=== PATIENT | female | born 1935 | race Caucasian/White ===

== ENCOUNTER → 2020-04-05 | Outpatient (CLI) | payer MEDICARE, OTHER | END | disposition home or self-care (01) | LOC: LAB SHORT 17:45 → LAB 17:45 | DX: Z00.00 Encounter for general adult medical examination without abnormal findings (principal); E03.9 Hypothyroidism, unspecified; E78.5 Hyperlipidemia, unspecified; M54.5 Low back pain; R31.21 Asymptomatic microscopic hematuria | CPT/HCPCS: 87086 ==

== ENCOUNTER → 2022-01-07 | Outpatient (CLI) | payer MEDICARE, OTHER ==
[2022-01-07 08:54] LABS: BASOPHILS ABSOLUTE AUTO 0.03 K/mm3 (0.00-0.23); BASOPHILS PERCENT AUTO 0 % (0-2); EOSINOPHILS ABSOLUTE AUTO 0.05 K/mm3 (0.00-0.68); EOSINOPHILS PERCENT AUTO 1 % (0-6); Hematocrit 43.1 % (33.0-51.0); Hemoglobin 15.4 g/dL (11.5-16.0); IMMATURE GRAN ABSOLUTE AUTO 0.02 K/mm3 (0.00-0.10); IMMATURE GRAN PERCENT AUTO 0 % (0-1); LYMPHOCYTES ABSOLUTE AUTO 1.72 K/mm3 (0.84-5.20); LYMPHOCYTES PERCENT AUTO 23 % (21-46); MONOCYTES ABSOLUTE AUTO 1.88 K/mm3 (0.16-1.47); MONOCYTES PERCENT AUTO 26 % (4-13); Mean Corpuscular HGB 34.1 pg (26.0-34.0); Mean Corpuscular HGB Conc 35.7 g/dL (31.5-36.5); Mean Corpuscular Volume 96 fL (80-100); Mean Platelet Volume 9.6 fL (9.1-12.4); NEUTROPHILS ABSOLUTE AUTO 3.68 K/mm3 (1.96-9.15); NEUTROPHILS PERCENT AUTO 50 % (41-73); Platelet Count 219 K/mm3 (150-400); RDW Coefficient Variation 12.2 % (11.7-14.2); Red Blood Cell Count 4.51 M/mm3 (3.80-5.20); White Blood Cell Count 7.38 K/mm3 (4.00-11.30)
[2022-01-07 09:05] LABS: Albumin/Globulin Ratio 0.7 (0.8-1.8); Bilirubin, Total 0.7 mg/dL (0.1-1.0); Bun/Creatinine Ratio 9.9 (12.0-20.0); Creatinine, Blood 1.01 mg/dL (0.40-1.00); Globulin, Blood 4.1 g/dL (2.2-4.0); Potassium, Blood 3.1 mmol/L (3.5-5.5); Total Protein, Blood 7.1 g/dL (6.4-8.2)
== END | disposition home or self-care (01) ==
LOC: LAB SHORT 08:49 → LAB 08:49
PROVIDERS: Family Medicine
DX: R10.9 Unspecified abdominal pain (principal); R31.9 Hematuria, unspecified
CPT/HCPCS: 80053; 83690; 85025; 87086

== ENCOUNTER 2022-01-28 11:53 | Inpatient (IN) | payer MEDICARE, OTHER ==
[~2022-01-28] VITALS: Ht 170.2 cm; Wt 64.7 kg
--- NOTE | 2022-01-28 14:42 | NUR ---
ADMISSION- DIRECT ADMIT 1211 01/28/22 PATIENT REPORTS HAVING AN [facility] APPT THIS AM, DUE TO HER LACK OF BM, AND WAS SENT BY DR. HARMON FOR DIRECT ADMIT. SHE REPORTS A SMALL BM ON 01/24/22, BUT BEFORE THAT IT HAD BEEN SINCE 12/26/21 HER LAST BM. THIS AM (AT HOME) SHE VOMITTED WHAT IS SUSPECTED TO BE BOWEL CONTENT. SHE WILL HAVE A CT, AND POSSIBLY SURGERY DEPENDING ON RESULTS. PATIENTS PAIN IS INTERMITTENT IN THE ABDOMEN, BEGINS A DULL PAIN AND MOVES TOWARDS SHARP. ABD IS DISTENDED AND TENDER ON PALPATION. SHE IS ALERT AND OREINTATED. WALKS WITHOUT CANE/WALKER AND DOES WELL. SHE WEARS GLASSES, AND HAS A PARTIAL IN UPPER TOOTH LINE. SHE IS NPO.
--- NOTE | 2022-01-28 18:37 | NUR ---
PATIENT WAS A DIRECT ADMIT THIS AFTERNOON. PLEASE ALSO READ NURSING NOTE. SINCE THE TIME OF ADMISSION, THE PATIENT HAS BEEN NPO. SHE HAS LR RUNNING @ 100 IN THE RIGHT AC- (20G) SHE IS SLOWLY DRINING THE PREP FOR THE CT SCAN. THE PREP NEEDS TO BE COMPLETED BY 8:00P/2000, SO THAT IMAGING CAN DO THIER CT. PATIENT HAD A SPELL OF NAUSEA AND WAS GIVEN ZOFRAN IV WITH SOME EFFECTIVNESS. STATES THAT SHE STILL FEELS A BIT NAUSEATED BUT DID NOT VOMIT. SHE WAS GIVEN A DULCOLAX SUPPOSITORY THIS EVENING. NO RESULTS AND NO URGE. LAB TEST CAME BACK WITH A HIGH RESULT THAT MAY INDICATE CANCER. PATIENT IS NOT AWARE OF THIS AT THIS TIME.
--- NOTE | 2022-01-28 22:56 | NUR ---
TOLERATED PREP BEFORE CT, WAS ESCORTED TO AND FROM RADIOLOGY. BACK IN ROOM. AFFECT CHEERFUL. CALL LIGHT IN REACH
[2022-01-29] MEDS ORDERED: ROSUVASTATIN CA20 MG PO (00:52)
[2022-01-29] MEDS ORDERED: Mobic15 MG PO (00:52)
[2022-01-29] MEDS ORDERED: EUTHYROX88 MC1 PO (00:52)
[2022-01-29] MEDS ORDERED: Cyclobenzaprine5 MG PO (00:53)
[2022-01-29] MEDS ORDERED: KLOR-CON 1010 ME8 PO (00:53)
--- NOTE | 2022-01-29 04:18 | NUR ---
ADMINISTRATIVE CLERK SUMMARY FINISHED PREP FOR CT AROUND SHIFT [place], WAS TRANSPORTED TO AND FROM RADIOLOGY FOR ABD CT. AWAITING RESULTS. HAS BEEN RESTING QUIETLY WITH OCCASIONAL INTERRUPTIONS (NAUSEA/ZOFRAN, ETC). UP AD TANISHA WITHOUT APPARENT DIFFICULTIES. NPO, IVF OF LR INFUSING AT 100 ML/HR. SEE MAR FOR DETAILS OF MEDS GIVEN. CALL LIGHT IN REACH
[2022-01-29 05:57] LABS: BASOPHILS ABSOLUTE AUTO 0.04 K/mm3 (0.00-0.23); BASOPHILS PERCENT AUTO 1 % (0-2); EOSINOPHILS ABSOLUTE AUTO 0.08 K/mm3 (0.00-0.68); EOSINOPHILS PERCENT AUTO 1 % (0-6); Hematocrit 39.8 % (33.0-51.0); Hemoglobin 13.9 g/dL (11.5-16.0); IMMATURE GRAN ABSOLUTE AUTO 0.02 K/mm3 (0.00-0.10); IMMATURE GRAN PERCENT AUTO 0 % (0-1); LYMPHOCYTES ABSOLUTE AUTO 1.88 K/mm3 (0.84-5.20); LYMPHOCYTES PERCENT AUTO 24 % (21-46); MONOCYTES PERCENT AUTO 14 % (4-13); Mean Corpuscular HGB 33.7 pg (26.0-34.0); Mean Corpuscular HGB Conc 34.9 g/dL (31.5-36.5); Mean Corpuscular Volume 96 fL (80-100); Mean Platelet Volume 10.4 fL (9.1-12.4); NEUTROPHILS ABSOLUTE AUTO 4.63 K/mm3 (1.96-9.15); NEUTROPHILS PERCENT AUTO 60 % (41-73); Platelet Count 196 K/mm3 (150-400); RDW Coefficient Variation 12.8 % (11.7-14.2); RDW Standard Deviation 45.6 fL (35.1-46.3); Red Blood Cell Count 4.13 M/mm3 (3.80-5.20); White Blood Cell Count 7.75 K/mm3 (4.00-11.30)
[2022-01-29 06:27] LABS: Albumin, Blood 3.1 g/dL (3.4-5.0); Bilirubin, Total 0.9 mg/dL (0.1-1.0); Bun/Creatinine Ratio 11.2 (12.0-20.0); Calcium, Blood 9.2 mg/dL (8.5-10.1); Creatinine, Blood 0.81 mg/dL (0.40-1.00); Globulin, Blood 3.2 g/dL (2.2-4.0); Magnesium, Blood 2.2 mg/dL (1.6-2.4); Phosphorus, Blood 3.7 mg/dL (2.5-4.9); Potassium, Blood 3.5 mmol/L (3.5-5.5); Total Protein, Blood 6.3 g/dL (6.4-8.2)
--- NOTE | 2022-01-29 07:50 | NUR ---
AT BEGINNING OF SHIFT PATIENT HAS SEVERE NAUSEA. ZOFRAN IV GIVEN. PATIENT HOLDING EMESIS BAG, SPITTING INTO IT, TRYING NOT TO FULLY VOMIT. COOL CLOTH APPLIED TO FORHEAD.
--- NOTE | 2022-01-29 16:07 | NUR ---
CONSULT WITH DR APONTE (SURGERY) COMPLETED. PATIENTS CONDITION WILL BE OBSERVED FOR A WHILE WITH NG IN PLACE BEFORE DECIDING IF SURGERY IS NEEDED. THE HOPE IS FOR THE SMALL INTESTINE TO UNTANGLE ITSELF A BIT. LOVENOX HAS BEEN DC FOR NOW, IN THE EVENT THAT SURGERY WOULD BE NEEDED. SCD'S APPLIED BILATERALLY. PATIENT HAS NEEDED ZOFRAN 2 X THIS SHIFT, ONCE BEFORE NG TUBE, AND ONCE LATER IN THE DAY. IT IS EFFECTIVE IN RELEIVING SOME OF THE NAUSEA.
--- NOTE | 2022-01-29 17:55 | NUR ---
PATIENT USED ZOFRAN X 2 TODAY. NG TUBE PLACED. SURGICAL CONSULT COMPLETED. LOVUNOX DISCONTINUED, SCD APPLIED. 300 OUT NG. EMISIS WITH FECAL CONTENT 300 CC BECAUSE NG BECAME PLUGGED. CLOG CLEARED AND NG IS WORKING AGAIN. PROTONIX IV STARTING TONIGHT AT 1700 PATIENT IS VISITING WITH SON AT THIS TIME AND FEELING A LITTLE LESS NAUSEATED.
--- NOTE | 2022-01-30 03:57 | NUR ---
SHIFT SUMMARY PT SLEEPING AND HAS NO COMPLAINTS AT THIS TIME. PT NG TUBE ON INTERMITTENT SUCTION. NG TUBE DOES CLOG WITH SEDIMENT AT TIMES, BUT ABLE TO CLEAR WITH WARM WATER FLUSHES. REPLACED PT IV AFTER OTHER ONE BEGAN TO LEAK. PT CONTINUES TO GET LR AT 100/HR. PT ANXIOUS ABOUT NG TUBE AND WHETHER OR NOT IT IS WORKING PROPERLY, HAVE TRIED TO REASSURE HER THAT IT IS DOING IT'S JOB. PT HAS CALL LIGHT WITHIN HER REACH.
[2022-01-30 05:47] LABS: BASOPHILS ABSOLUTE AUTO 0.03 K/mm3 (0.00-0.23); BASOPHILS PERCENT AUTO 0 % (0-2); EOSINOPHILS ABSOLUTE AUTO 0.14 K/mm3 (0.00-0.68); EOSINOPHILS PERCENT AUTO 2 % (0-6); Hematocrit 36.8 % (33.0-51.0); Hemoglobin 12.6 g/dL (11.5-16.0); IMMATURE GRAN ABSOLUTE AUTO 0.01 K/mm3 (0.00-0.10); IMMATURE GRAN PERCENT AUTO 0 % (0-1); LYMPHOCYTES PERCENT AUTO 33 % (21-46); MONOCYTES ABSOLUTE AUTO 0.91 K/mm3 (0.16-1.47); MONOCYTES PERCENT AUTO 13 % (4-13); Mean Corpuscular HGB 33.5 pg (26.0-34.0); Mean Corpuscular HGB Conc 34.2 g/dL (31.5-36.5); Mean Corpuscular Volume 98 fL (80-100); Mean Platelet Volume 10.2 fL (9.1-12.4); NEUTROPHILS ABSOLUTE AUTO 3.54 K/mm3 (1.96-9.15); NEUTROPHILS PERCENT AUTO 51 % (41-73); Platelet Count 178 K/mm3 (150-400); RDW Coefficient Variation 12.6 % (11.7-14.2); RDW Standard Deviation 45.3 fL (35.1-46.3); Red Blood Cell Count 3.76 M/mm3 (3.80-5.20); White Blood Cell Count 6.93 K/mm3 (4.00-11.30)
[2022-01-30 05:57] LABS: International Normalized Ratio 1.04; Prothrombin Time Results 10.9 Sec (9.7-11.5)
[2022-01-30 06:02] LABS: Albumin, Blood 2.7 g/dL (3.4-5.0); Bilirubin, Total 0.8 mg/dL (0.1-1.0); Bun/Creatinine Ratio 17.6 (12.0-20.0); Calcium, Blood 8.3 mg/dL (8.5-10.1); Creatinine, Blood 0.74 mg/dL (0.40-1.00); Globulin, Blood 2.8 g/dL (2.2-4.0); Potassium, Blood 3.4 mmol/L (3.5-5.5); Total Protein, Blood 5.5 g/dL (6.4-8.2)
--- NOTE | 2022-01-30 19:23 | NUR ---
SHIFT SUMMARY PT A/O X4; PLEASANT AND COOPERATIVE WITH CARE. ADMITTED FOR SBO THAT IS NON-SURGICAL AT THIS TIME. NG TUBE IN PLACE AND PATENT. NG DRAINING LARGE AMOUNTS OF BILE. PT PLACED ON TPN THIS SHIFT. NO NAUSEA OR PAIN, HOWEVER THE PATIENT HAS A SORE THROAT AND TREATED PER EMR.
--- NOTE | 2022-01-31 05:44 | NUR ---
SHIFT SUMMARY PATIENT ALERT AND ORIENTED. HAD NO COMPLAINTS OF PAIN OR SHORTNESS OF BREATH. NG TUBE REMAINS IN PLACE AND ON LOW/INTERMITTENT SUCTION DRAINING BROWN LIQUID. NO ACUTE ISSUES NOTED OVERNIGHT. CALL LIGHT WITHIN REACH. REPORT GIVEN TO ONCOMING RN.
[2022-01-31 06:21] LABS: Bun/Creatinine Ratio 20.4 (12.0-20.0); Calcium, Blood 8.5 mg/dL (8.5-10.1); Creatinine, Blood 0.64 mg/dL (0.40-1.00); Magnesium, Blood 2.2 mg/dL (1.6-2.4); Phosphorus, Blood 2.6 mg/dL (2.5-4.9); Potassium, Blood 3.7 mmol/L (3.5-5.5)
--- NOTE | 2022-01-31 07:30 | NUR ---
ASSUMED CARE: PT RESTING IN BED AT THIS TIME. NG TO LIS PUTTING OUT GREEN DRAINAGE. NIGHT RN REPORTS PT PASSING GAS. PT DENIES NEEDS OR CONCERNS AT THIS TIME.
--- NOTE | 2022-01-31 09:07 | NUR ---
DR APONTE CAME TO SEE PT AND REQUESTED THAT NG BE CLAMPED AND PT DO SIPS AND CHIPS AND TRIAL CLEAR LIQUIDS AND IF PT TOLERATES WELL THEN DC NG
--- NOTE | 2022-01-31 11:00 | NUR ---
PT AMBULATED IN HALLS WITH WALKER WHILE NG TUBE CLAMPED. RESTING IN BED NOW. ASKED PT IF SHE WOULD LIKE TO TRY CLEAR LIQUIDS. PT SIPPING ON CRANBERRY JUICE AT THIS TIME. DENIES NAUSEA OR VOMITING.
--- NOTE | 2022-01-31 15:08 | NUR ---
REMOVED PT'S NG TUBE DUE TO TOLERATING CLEAR LIQUIDS WELL. NO NEEDS OR DISTRESS AT THIS TIME. SOLAR SALES REP AT BEDSIDE
--- NOTE | 2022-01-31 18:42 | NUR ---
SHIFT SUMMARY: PT AMBULATORY IN HALLS THIS SHIFT, PASSING GAS. NG TUBE REMOVED AND DENIES NAUSEA WITH MEALS. FLUIDS SWITCHED TO LR PER ORDERS. POSSIBLE DC HOME TOMORROW. NO ACUTE NEEDS OR CONCERNS AT THIS TIME.
[2022-02-01 05:25] LABS: Magnesium, Blood 2.1 mg/dL (1.6-2.4); Phosphorus, Blood 2.7 mg/dL (2.5-4.9)
--- NOTE | 2022-02-01 06:18 | NUR ---
SHIFT SUMMARY PATIENT ALERT AND ORIENTED. HAD NO COMPLAINTS OF PAIN OR SHORTNESS OF BREATH. HAD A SMALL BOWEL MOVEMENT THIS MORNING. NO ACUTE ISSUES NOTED OVERNIGHT. CALL LIGHT WITHIN REACH. REPORT GIVEN TO ONCOMING RN.
[2022-02-01] MEDS ORDERED: MIRALAX1713 PO (13:32)
--- NOTE | 2022-02-01 14:29 | NUR ---
DISCHARGE PT A&OX4, PROVIDED WRITTEN AND VERBAL INFO. IV DC'ED, AMB.IND. TOLERATING PO INTAKE. BOWEL TONES PRESENT. [facility], SON PROVIDING TRANSPORT.
== END 2022-02-01 14:26 | disposition home or self-care (01) | DRG 390 ==
LOC: MEDS 11:53
PROVIDERS: ADMIT Hospitalist
DX: K56.51 Intestinal adhesions [bands], with partial obstruction (principal); K59.09 Other constipation; F41.9 Anxiety disorder, unspecified; F32.A Depression, unspecified; M19.90 Unspecified osteoarthritis, unspecified site; E78.5 Hyperlipidemia, unspecified; M85.80 Other specified disorders of bone density and structure, unspecified site; E03.9 Hypothyroidism, unspecified; I70.90 Unspecified atherosclerosis; F17.210 Nicotine dependence, cigarettes, uncomplicated; J43.9 Emphysema, unspecified; E87.6 Hypokalemia; Z86.73 Personal history of transient ischemic attack (TIA), and cerebral infarction without residual deficits; Z90.710 Acquired absence of both cervix and uterus; Z90.722 Acquired absence of ovaries, bilateral; Z90.49 Acquired absence of other specified parts of digestive tract; Z98.890 Other specified postprocedural states; Z88.8 Allergy status to other drugs, medicaments and biological substances; Z79.899 Other long term (current) drug therapy; Z79.51 Long term (current) use of inhaled steroids; Z88.5 Allergy status to narcotic agent; Z71.3 Dietary counseling and surveillance
CPT/HCPCS: 36415; 74019; 74177; 80048; 80053; 82378; 82947; 83735; 84100; 85025; 85610; 94760; A9270; C9113; J0610; J1650; J2405; J3411; J3475; J3480; J7120; J7131; Q9967

== ENCOUNTER → 2022-01-28 | Outpatient (CLI) | payer MEDICARE, OTHER ==
[~2022-01-28] MED LIST: Cyclobenzaprine5 MG PO; EUTHYROX88 MC1 PO; KLOR-CON 1010 ME8 PO; MIRALAX1713 PO; Mobic15 MG PO; ONDA4 PO; ROSUVASTATIN CA20 MG PO; Ventolin/Prove6.7 GM INH
[2022-01-28 09:55] LABS: BASOPHILS ABSOLUTE AUTO 0.04 K/mm3 (0.00-0.23); BASOPHILS PERCENT AUTO 1 % (0-2); EOSINOPHILS ABSOLUTE AUTO 0.05 K/mm3 (0.00-0.68); EOSINOPHILS PERCENT AUTO 1 % (0-6); Hematocrit 44.5 % (33.0-51.0); Hemoglobin 15.3 g/dL (11.5-16.0); IMMATURE GRAN ABSOLUTE AUTO 0.01 K/mm3 (0.00-0.10); IMMATURE GRAN PERCENT AUTO 0 % (0-1); LYMPHOCYTES ABSOLUTE AUTO 1.45 K/mm3 (0.84-5.20); LYMPHOCYTES PERCENT AUTO 20 % (21-46); MONOCYTES ABSOLUTE AUTO 0.95 K/mm3 (0.16-1.47); MONOCYTES PERCENT AUTO 13 % (4-13); Mean Corpuscular HGB 33.6 pg (26.0-34.0); Mean Corpuscular HGB Conc 34.4 g/dL (31.5-36.5); Mean Corpuscular Volume 98 fL (80-100); Mean Platelet Volume 9.8 fL (9.1-12.4); NEUTROPHILS ABSOLUTE AUTO 4.91 K/mm3 (1.96-9.15); NEUTROPHILS PERCENT AUTO 66 % (41-73); Platelet Count 214 K/mm3 (150-400); RDW Coefficient Variation 13.1 % (11.7-14.2); RDW Standard Deviation 46.9 fL (35.1-46.3); Red Blood Cell Count 4.56 M/mm3 (3.80-5.20); White Blood Cell Count 7.41 K/mm3 (4.00-11.30)
[2022-01-28 10:21] LABS: Albumin, Blood 3.7 g/dL (3.4-5.0); Bilirubin, Total 0.8 mg/dL (0.1-1.0); Bun/Creatinine Ratio 9.2 (12.0-20.0); Calcium, Blood 9.6 mg/dL (8.5-10.1); Creatinine, Blood 1.09 mg/dL (0.40-1.00); Globulin, Blood 3.7 g/dL (2.2-4.0); Potassium, Blood 3.8 mmol/L (3.5-5.5); Thyroid Stimulating Hormone 3.095 uIU/mL (0.360-4.800); Total Protein, Blood 7.4 g/dL (6.4-8.2)
== END | disposition home or self-care (01) ==
LOC: LAB SHORT 09:50 → LAB 09:50
PROVIDERS: Physician Assistant
DX: R10.9 Unspecified abdominal pain (principal); R53.83 Other fatigue; R82.79 Other abnormal findings on microbiological examination of urine
CPT/HCPCS: 80053; 83690; 84443; 85025; 87086

== ENCOUNTER 2022-02-02 12:58 | Inpatient (IN) | payer MEDICARE, OTHER ==
[~2022-02-02] VITALS: Ht 170.2 cm; Wt 64.3 kg
[~2022-02-02 12:58] MED LIST changes: -ONDA4 PO; -Ventolin/Prove6.7 GM INH
[2022-02-02 13:31] LABS: BASOPHILS ABSOLUTE AUTO 0.02 K/mm3 (0.00-0.23); BASOPHILS PERCENT AUTO 0 % (0-2); EOSINOPHILS ABSOLUTE AUTO 0.03 K/mm3 (0.00-0.68); EOSINOPHILS PERCENT AUTO 0 % (0-6); Hematocrit 46.2 % (33.0-51.0); Hemoglobin 15.7 g/dL (11.5-16.0); IMMATURE GRAN ABSOLUTE AUTO 0.01 K/mm3 (0.00-0.10); IMMATURE GRAN PERCENT AUTO 0 % (0-1); LYMPHOCYTES ABSOLUTE AUTO 1.52 K/mm3 (0.84-5.20); LYMPHOCYTES PERCENT AUTO 16 % (21-46); MONOCYTES ABSOLUTE AUTO 1.33 K/mm3 (0.16-1.47); MONOCYTES PERCENT AUTO 14 % (4-13); Mean Corpuscular HGB 33.2 pg (26.0-34.0); Mean Corpuscular Volume 98 fL (80-100); Mean Platelet Volume 10.4 fL (9.1-12.4); NEUTROPHILS PERCENT AUTO 69 % (41-73); Platelet Count 196 K/mm3 (150-400); RDW Coefficient Variation 12.7 % (11.7-14.2); RDW Standard Deviation 45.5 fL (35.1-46.3); Red Blood Cell Count 4.73 M/mm3 (3.80-5.20); White Blood Cell Count 9.41 K/mm3 (4.00-11.30)
[2022-02-02 14:40] LABS: Albumin, Blood 3.7 g/dL (3.4-5.0); Albumin/Globulin Ratio 0.9 (0.8-1.8); Bilirubin, Total 1.5 mg/dL (0.1-1.0); Bun/Creatinine Ratio 11.2 (12.0-20.0); Calcium, Blood 10.1 mg/dL (8.5-10.1); Creatinine, Blood 0.98 mg/dL (0.40-1.00); Globulin, Blood 3.9 g/dL (2.2-4.0); Potassium, Blood 3.4 mmol/L (3.5-5.5); Total Protein, Blood 7.6 g/dL (6.4-8.2)
--- NOTE | 2022-02-02 18:22 | NUR ---
PT ARRIVED TO THE MEDICAL FLOOR AROUND 1645 FROM THE ER VIA GURNEY. THE PT WAS ABLE TO AMBULATE FORM THE GURNEY TO THE BATHROOM AND BACK TO THE BED WITH MINIMAL ASSISTANCE. THE PT REPORTED THAT SHE WAS NOT ABLE TO HAVE A BM OR PASS GAS. THE PT REPORTED SHERP IMTERMITTEN PAINS IN HER ABD. HOWEVER DECLINED PAIN MEDICATION AT THIS TIME. THE PT WAS ORIENTED TO THE ROOM LAYOUT AND CALL SYSTEM. CALL LIGHT IN REACH. THE PT IS NPO AND WANTED TO REST.
--- NOTE | 2022-02-03 05:11 | NUR ---
SHIFT SUMMARY A/O X4, IND IN ROOM. PT HAS HAD ONE EPISODE OF BROWN EMESIS THIS SHIFT, NAUSEA TREATED Q6H W/ ZOFRAN PER EMAR. NO FURTHER EPISODES. PT REPORTS "FEELING BETTER" THIS AM. NO PAIN REPORTED THROUGHOUT SHIFT. VOIDING WELL. WILL CONTINUE TO MONITOR AND REPORT TO ONCOMING RN.
[2022-02-03 05:26] LABS: BASOPHILS ABSOLUTE AUTO 0.03 K/mm3 (0.00-0.23); BASOPHILS PERCENT AUTO 1 % (0-2); EOSINOPHILS ABSOLUTE AUTO 0.03 K/mm3 (0.00-0.68); EOSINOPHILS PERCENT AUTO 1 % (0-6); Hemoglobin 13.2 g/dL (11.5-16.0); IMMATURE GRAN ABSOLUTE AUTO 0.01 K/mm3 (0.00-0.10); IMMATURE GRAN PERCENT AUTO 0 % (0-1); LYMPHOCYTES ABSOLUTE AUTO 1.58 K/mm3 (0.84-5.20); LYMPHOCYTES PERCENT AUTO 26 % (21-46); MONOCYTES ABSOLUTE AUTO 1.46 K/mm3 (0.16-1.47); MONOCYTES PERCENT AUTO 24 % (4-13); Mean Corpuscular HGB Conc 33.8 g/dL (31.5-36.5); Mean Corpuscular Volume 98 fL (80-100); NEUTROPHILS ABSOLUTE AUTO 2.87 K/mm3 (1.96-9.15); NEUTROPHILS PERCENT AUTO 48 % (41-73); Platelet Count 162 K/mm3 (150-400); RDW Coefficient Variation 12.6 % (11.7-14.2); RDW Standard Deviation 45.5 fL (35.1-46.3); White Blood Cell Count 5.98 K/mm3 (4.00-11.30)
[2022-02-03 05:45] LABS: Albumin, Blood 2.7 g/dL (3.4-5.0); Anion Gap 8 mmol/L (6-16); Blood Urea Nitrogen 16 mg/dL (8-24); Bun/Creatinine Ratio 20.7 (12.0-20.0); CO2, Blood 25 mmol/L (21-32); Calcium, Blood 8.8 mg/dL (8.5-10.1); Chloride, Blood 106 mmol/L (98-108); Creatinine, Blood 0.77 mg/dL (0.40-1.00); Glomerular Filtration Rate 76 (60-); Glucose, Blood 87 mg/dL (70-99); Magnesium, Blood 1.9 mg/dL (1.6-2.4); Phosphorus, Blood 4.1 mg/dL (2.5-4.9); Potassium, Blood 3.7 mmol/L (3.5-5.5); Sodium, Blood 139 mmol/L (136-145)
--- NOTE | 2022-02-03 18:00 | NUR ---
PT IS A/OX4, PLEASANT AND COOPERATIVE. THE PT IS UP IND IN HER ROOM. THE PT WAS NAUSEATED THIS AM ZOFRAN WAS GIVEN AND SINCE THEN THE PT HAS BEEN UP AMBULATING IN THE ROOM AND THE HUITRON AND HAS HAD 3 LARGE LOOSE BM'S SO FAR TODAY. TOBI AFTERNOON THE PT REPORTS FEELING MUCH BETTER. THE PTS IS AT THE BEDSIDE. PT HAS BEEN TOLERATING SMALL AMOUNTS OF ICE CHIPS. CALL LIGHT IN REAC. WILL CONTINUE TO MONITOR AND ASSESS FOR CHANGES
[2022-02-03] MEDS ORDERED: Ventolin/Prove6.7 GM INH (19:03)
[2022-02-04 05:12] LABS: BASOPHILS ABSOLUTE AUTO 0.01 K/mm3 (0.00-0.23); BASOPHILS PERCENT AUTO 0 % (0-2); EOSINOPHILS ABSOLUTE AUTO 0.08 K/mm3 (0.00-0.68); EOSINOPHILS PERCENT AUTO 2 % (0-6); Hematocrit 33.9 % (33.0-51.0); Hemoglobin 11.5 g/dL (11.5-16.0); IMMATURE GRAN PERCENT AUTO 0 % (0-1); LYMPHOCYTES ABSOLUTE AUTO 2.04 K/mm3 (0.84-5.20); LYMPHOCYTES PERCENT AUTO 49 % (21-46); MONOCYTES ABSOLUTE AUTO 0.66 K/mm3 (0.16-1.47); MONOCYTES PERCENT AUTO 16 % (4-13); Mean Corpuscular HGB 33.5 pg (26.0-34.0); Mean Corpuscular HGB Conc 33.9 g/dL (31.5-36.5); Mean Corpuscular Volume 99 fL (80-100); Mean Platelet Volume 10.9 fL (9.1-12.4); NEUTROPHILS ABSOLUTE AUTO 1.38 K/mm3 (1.96-9.15); NEUTROPHILS PERCENT AUTO 33 % (41-73); Platelet Count 152 K/mm3 (150-400); RDW Coefficient Variation 12.7 % (11.7-14.2); RDW Standard Deviation 45.6 fL (35.1-46.3); Red Blood Cell Count 3.43 M/mm3 (3.80-5.20); White Blood Cell Count 4.17 K/mm3 (4.00-11.30)
[2022-02-04 05:26] LABS: Albumin, Blood 2.4 g/dL (3.4-5.0); Anion Gap 7 mmol/L (6-16); Blood Urea Nitrogen 14 mg/dL (8-24); Bun/Creatinine Ratio 21.8 (12.0-20.0); CO2, Blood 25 mmol/L (21-32); Calcium, Blood 8.2 mg/dL (8.5-10.1); Chloride, Blood 110 mmol/L (98-108); Creatinine, Blood 0.64 mg/dL (0.40-1.00); Glomerular Filtration Rate 87 (60-); Glucose, Blood 64 mg/dL (70-99); Phosphorus, Blood 2.5 mg/dL (2.5-4.9); Potassium, Blood 3.3 mmol/L (3.5-5.5); Sodium, Blood 142 mmol/L (136-145)
--- NOTE | 2022-02-04 06:08 | NUR ---
SHIFT SUMMARY: PT IS A/OX4. SHE HAS BEEN INDEPENDENT IN THE ROOM. SHE DID HAVE MULTIPLE BOWELS MOVEMENTS DAY/NIGHT SHIFTS. SHE HAS NO C/O OF N/V AND STATES SHE FEELS LESS DISTENDED. THE CALL LIGHT IS WITHIN REACH AND WE'LL CONTINUE TO MONITOR.
--- NOTE | 2022-02-04 18:36 | NUR ---
PATIENT IS ALERT AND ORIENTED AND COOPERATIVE WITH CARE. PATIENT TOLERATED CLEAR LIQUID DIET TODAY AND WOULD LIKE TO ADVANCE DIET. NO C/O ABDOMINAL PAIN. NO BM TODAY. WILL CONTINUE TO MONITOR
--- NOTE | 2022-02-05 04:48 | NUR ---
SUMMARY: PT A/OX4, INDEPENDENT AND IS PLEASANT/COOPERATIVE W/CARE. SHE CONT'S TO TOLERATE DIET W/O NAUSEA OR ABDO PAIN AND CAN LIKELU BE ADVANCED TO REGULAR DIET THIS AM. STILL NO BM THIS SHIFT BUT PT PASSING FLATUS. VSS/AFEBRILE. WCTM AND REPORT TO DAY RN.
--- NOTE | 2022-02-05 16:16 | NUR ---
PT REPORTS SHE HAD 4 SMALL PEBBLE SIZE STOOLS AFTER DRINKING MIRALAX. SHE DENIES ABD PAIN FROM DRINKING MIRALAX. GAVE SUPPOSITORY. DR. MILES UPDATED.
--- NOTE | 2022-02-06 04:29 | NUR ---
SHIFT SUMMARY 86 YR F ADMITTED ON 02/03/22 FOR SMALL BOWEL OBSTRUCTION. DNR. PT WAS HOPING TO HAVE A BOWEL MOVEMENT THIS SHIFT THIS IS WHAT NEEDS TO HAPPEN BEFORE SHE CAN GET DISCHARGED. NO BM YET. PT STATED THAT SHE IS VERY ENBARASSED BY THE NATURE OF HER ADMISSION. THIS NURSE TRIED TO REASSURE HER THAT SHE HAD NOTHING TO BE EMBARASSED ABOUT AND THAT WE DEAL WITH THIS ALL THE TIME. SHE IS A VERY PLEASANT WOMAN AND IS FULLY COOPERATIVE IN HER OWN CARE.
[2022-02-06] MEDS ORDERED: ONDA4 PO (08:30)
--- NOTE | 2022-02-06 15:49 | NUR ---
DISCHARGE SUMMARY: PT EDUCATED ON DISCHARGE PLAN AND MEDICATIONS. PT AZUL. ASSISTED PT WITH PACKING BELONGINGS. PT SON ESCORTED HER TO POV.
== END 2022-02-06 13:36 | disposition home or self-care (01) | DRG 390 ==
LOC: ER 12:58 → MEDS 16:07
PROVIDERS: Physician Assistant; ADMIT Family Medicine
DX: K56.51 Intestinal adhesions [bands], with partial obstruction (principal); Z66 Do not resuscitate; K59.09 Other constipation; F41.9 Anxiety disorder, unspecified; F32.A Depression, unspecified; M19.90 Unspecified osteoarthritis, unspecified site; E78.5 Hyperlipidemia, unspecified; E03.9 Hypothyroidism, unspecified; J43.9 Emphysema, unspecified; M85.80 Other specified disorders of bone density and structure, unspecified site; Z86.73 Personal history of transient ischemic attack (TIA), and cerebral infarction without residual deficits; Z90.710 Acquired absence of both cervix and uterus; Z90.721 Acquired absence of ovaries, unilateral; Z90.49 Acquired absence of other specified parts of digestive tract; Z98.890 Other specified postprocedural states; Z88.8 Allergy status to other drugs, medicaments and biological substances; Z79.899 Other long term (current) drug therapy
CPT/HCPCS: 36415; 74018; 80053; 80069; 83690; 83735; 85025; 96361; 96372; 96374; 96375; 96376; 99285-25; A9270; G0378; J1644; J2405; J7060; J7120

== ENCOUNTER 2025-03-31 20:38 | Emergency (ER) | payer MEDICARE ==
[~2025-03-31] VITALS: Ht 167.6 cm; Wt 66.7 kg
[~2025-03-31 20:38] MED LIST changes: +ONDA4 PO; +Ventolin/Prove6.7 GM INH
[2025-03-31 20:58] LABS: BASOPHILS ABSOLUTE AUTO 0.03 K/mm3 (0.00-0.23); BASOPHILS PERCENT AUTO 0 % (0-2); EOSINOPHILS ABSOLUTE AUTO 0.09 K/mm3 (0.00-0.68); EOSINOPHILS PERCENT AUTO 1 % (0-6); Hematocrit 40.4 % (33.0-51.0); Hemoglobin 14.2 g/dL (11.5-16.0); IMMATURE GRAN ABSOLUTE AUTO 0.02 K/mm3 (0.00-0.10); IMMATURE GRAN PERCENT AUTO 0 % (0-1); LYMPHOCYTES ABSOLUTE AUTO 2.33 K/mm3 (0.84-5.20); LYMPHOCYTES PERCENT AUTO 32 % (21-46); MONOCYTES ABSOLUTE AUTO 1.27 K/mm3 (0.16-1.47); MONOCYTES PERCENT AUTO 17 % (4-13); Mean Corpuscular HGB Conc 35.1 g/dL (31.5-36.5); Mean Corpuscular Volume 97 fL (80-100); NEUTROPHILS ABSOLUTE AUTO 3.61 K/mm3 (1.96-9.15); NEUTROPHILS PERCENT AUTO 49 % (41-73); NRBC ABSOLUTE 0.00 K/mm3 (0.00-0.02); NRBC Auto 0.0 /100 WBC (0.0-0.2); Platelet Count 153 K/mm3 (150-400); RDW Coefficient Variation 13.0 % (11.7-14.2); RDW Standard Deviation 46.4 fL (35.1-46.3)
[2025-03-31] MEDS ORDERED: Lidocaine 2% Viscous Soln 15 ML UDC PO ONE (21:30)
[2025-03-31 21:36] LABS: Alanine Aminotransfer (ALT/SGP 19.0 U/L (12-78); Albumin, Blood 3.7 g/dL (3.4-5.0); Albumin/Globulin Ratio 1.0 (0.8-1.8); Anion Gap 9.0 mmol/L (3-11); Aspartate Aminotrans (AST/SGOT 17.0 U/L (12-37); Bilirubin, Total 0.6 mg/dL (0.1-1.0); Blood Urea Nitrogen 17.0 mg/dL (8-24); CO2, Blood 23.0 mmol/L (21-32); Calcium, Blood 9.3 mg/dL (8.5-10.1); Chloride, Blood 109.0 mmol/L (98-108); Creatinine, Blood 0.75 mg/dL (0.40-1.00); Globulin, Blood 3.7 g/dL (2.2-4.0); Glucose, Blood 98.0 mg/dL (70-99); Potassium, Blood 3.8 mmol/L (3.5-5.5); Sodium, Blood 137.0 mmol/L (136-145); Total Protein, Blood 7.4 g/dL (6.4-8.2)
[2025-03-31] MEDS ORDERED: Ketorolac Tromethamine 15mg Vial IV ONE (22:10)
[2025-03-31] MEDS ORDERED: Ondansetron HCl 2 MG / ML 2ML Vial IV ONE (22:15)
[2025-04-01 00:35] VITALS: BP 136/65
== END 2025-04-01 00:35 | disposition home or self-care (01) ==
LOC: ER 20:38
PROVIDERS: Student in an Organized Health Care Education/Training Program
DX: R07.2 Precordial pain (principal); Z88.0 Allergy status to penicillin; Z79.899 Other long term (current) drug therapy; M19.90 Unspecified osteoarthritis, unspecified site; E78.5 Hyperlipidemia, unspecified
CPT/HCPCS: 71046; 80053; 83690; 84484; 85025; 93005; 93010; 96374; 96375; 99285-25; A9270; J1885; J2405

== ENCOUNTER 2025-04-01 12:16 | Inpatient (IN) | payer MEDICARE, OTHER ==
[~2025-04-01] VITALS: Ht 167.6 cm; Wt 67.8 kg
[2025-04-01] MEDS ORDERED: Ketorolac Tromethamine 30mg Vial IV ONE (12:55)
[2025-04-01] MEDS ORDERED: HYDROmorphone HCl/Pf 1MG SYR IV ONE (12:55)
[2025-04-01 13:56] LABS: Hematocrit 41.8 % (33.0-51.0); Hemoglobin 14.7 g/dL (11.5-16.0); Mean Corpuscular HGB Conc 35.2 g/dL (31.5-36.5); Mean Corpuscular Volume 98 fL (80-100); NRBC ABSOLUTE 0.00 K/mm3 (0.00-0.02); NRBC Auto 0.0 /100 WBC (0.0-0.2); Platelet Count 144 K/mm3 (150-400); RDW Coefficient Variation 13.0 % (11.7-14.2); RDW Standard Deviation 46.6 fL (35.1-46.3)
[2025-04-01 14:13] LABS: Alanine Aminotransfer (ALT/SGP 382.0 U/L (12-78); Albumin, Blood 3.6 g/dL (3.4-5.0); Albumin/Globulin Ratio 1.0 (0.8-1.8); Anion Gap 5.0 mmol/L (3-11); Aspartate Aminotrans (AST/SGOT 464.0 U/L (12-37); Bilirubin, Total 1.9 mg/dL (0.1-1.0); Blood Urea Nitrogen 18.0 mg/dL (8-24); CO2, Blood 24.0 mmol/L (21-32); Calcium, Blood 9.0 mg/dL (8.5-10.1); Chloride, Blood 109.0 mmol/L (98-108); Creatinine, Blood 0.68 mg/dL (0.40-1.00); Globulin, Blood 3.7 g/dL (2.2-4.0); Glucose, Blood 127.0 mg/dL (70-99); Magnesium, Blood 2.0 mg/dL (1.6-2.4); Potassium, Blood 3.9 mmol/L (3.5-5.5); Sodium, Blood 134.0 mmol/L (136-145); Total Protein, Blood 7.3 g/dL (6.4-8.2)
[2025-04-01 14:23] LABS: BAND PERCENT MAN 6 % (0-8); BASOPHILS ABSOLUTE MAN 0.00 K/mm3 (0.00-0.23); BASOPHILS PERCENT MAN 0 % (0-2); EOSINOPHILS ABSOLUTE MAN 0.00 K/mm3 (0.00-0.68); EOSINOPHILS PERCENT MAN 0 % (0-6); LYMPHOCYTES ABSOLUTE MAN 0.61 K/mm3 (0.84-5.20); LYMPHOCYTES PERCENT MAN 4 % (21-46); MONOCYTES ABSOLUTE MAN 4.30 K/mm3 (0.16-1.47); MONOCYTES PERCENT MAN 28 % (4-13); NEUTROPHILS ABSOLUTE MAN 10.45 K/mm3 (1.96-9.15); SEG NEUTROPHILS PERCENT MAN 62 % (41-73)
[2025-04-01] MEDS ORDERED: Ampicillin Sod/Sulbactam Sod 3 GM in NS 100 ML IV ONE (14:30)
[2025-04-01] MEDS ORDERED: HYDROmorphone HCl/Pf 1MG SYR IV PRN (15:55)
[2025-04-01 17:38] VITALS: BP 121/61
--- NOTE | 2025-04-01 18:51 | NUR ---
SHIFT SUMMARY SHE ARRIVED UP FROM THE ER AT APPROX 1740, SETTED INTO HER ROOM, DISCUSSED CURRENT SITUATION/ADMITTING DX, PT REPORTS PAIN TOELRABLE AT THIS TIME AND WANTING TO GET SOME REST, DISCUSSED BEDSIDE SHIFT REPORT AT SHIFT CHANGE, POSSIBLE SURGERY WHICH WOULD BE DISCUSSED BY GEN SURGERY INCLUDING PLAN OF CARE AND ALTERNATIVE OPTIONS. 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 SHE STATES SHE HAS HAD SOME IMAGING BUT HAS NOT SEEN AN ONCOLOGIST YET, SHE ALSO REPORTS SHE IS GOING TO HAVE A BIOPSY DONE UP IN [place] IN THE NEXT FEW WEEKS. PLAN FOR KEEPING HER COMFORTABLE OVER NIGHT AND SURGERY DISCUSSING OPTIONS IN THE MORNING. NO QUESTIONS AT THIS TIME, PT RESTING IN BED WITH CALL LIGHT IN REACH.
[2025-04-01 20:22] VITALS: BP 110/59
[2025-04-01] MEDS ORDERED: Albuterol HFA200 ACT/6.7 GM INH INH PRN (20:35)
[2025-04-01] MEDS ORDERED: Ampicillin Sod/Sulbactam Sod 3 GM in NS 100 ML IV SCH (22:30)
[2025-04-02] VITALS (15 sets, daily range): BP systolic 93–127; BP diastolic 53–65
--- NOTE | 2025-04-02 05:27 | NUR ---
SHIFT SUMMARY NO ACUTE CHANGES DURING SHIFT. PT MEDICATED PER EMAR FOR PAIN WITH PO PAIN MEDS. PT IV CHANGED DURING SHIFT DUE TO INITIAL IV NOT BEING PATENT. SURGERY POSSIBLE TODAY PENDING LAB RESULTS. CHG BATH COMPLETED BY KAILA.
[2025-04-02 06:01] LABS: Alanine Aminotransfer (ALT/SGP 417.0 U/L (12-78); Albumin, Blood 2.9 g/dL (3.4-5.0); Albumin/Globulin Ratio 0.9 (0.8-1.8); Anion Gap 7.0 mmol/L (3-11); Aspartate Aminotrans (AST/SGOT 279.0 U/L (12-37); Bilirubin, Total 1.6 mg/dL (0.1-1.0); Blood Urea Nitrogen 21.0 mg/dL (8-24); CO2, Blood 25.0 mmol/L (21-32); Calcium, Blood 8.1 mg/dL (8.5-10.1); Chloride, Blood 105.0 mmol/L (98-108); Creatinine, Blood 0.72 mg/dL (0.40-1.00); Globulin, Blood 3.3 g/dL (2.2-4.0); Glucose, Blood 95.0 mg/dL (70-99); Potassium, Blood 3.9 mmol/L (3.5-5.5); Sodium, Blood 133.0 mmol/L (136-145); Total Protein, Blood 6.2 g/dL (6.4-8.2)
[2025-04-02 09:03] LABS: BASOPHILS ABSOLUTE AUTO 0.03 K/mm3 (0.00-0.23); BASOPHILS PERCENT AUTO 0 % (0-2); EOSINOPHILS ABSOLUTE AUTO 0.03 K/mm3 (0.00-0.68); EOSINOPHILS PERCENT AUTO 0 % (0-6); Hematocrit 39.7 % (33.0-51.0); Hemoglobin 13.4 g/dL (11.5-16.0); IMMATURE GRAN ABSOLUTE AUTO 0.71 K/mm3 (0.00-0.10); IMMATURE GRAN PERCENT AUTO 3 % (0-1); LYMPHOCYTES ABSOLUTE AUTO 1.12 K/mm3 (0.84-5.20); LYMPHOCYTES PERCENT AUTO 5 % (21-46); MONOCYTES ABSOLUTE AUTO 5.02 K/mm3 (0.16-1.47); MONOCYTES PERCENT AUTO 24 % (4-13); Mean Corpuscular HGB Conc 33.8 g/dL (31.5-36.5); Mean Corpuscular Volume 101 fL (80-100); NEUTROPHILS ABSOLUTE AUTO 13.97 K/mm3 (1.96-9.15); NEUTROPHILS PERCENT AUTO 67 % (41-73); NRBC ABSOLUTE 0.00 K/mm3 (0.00-0.02); NRBC Auto 0.0 /100 WBC (0.0-0.2); Platelet Count 129 K/mm3 (150-400); RDW Coefficient Variation 13.2 % (11.7-14.2); RDW Standard Deviation 49.7 fL (35.1-46.3)
--- NOTE | 2025-04-02 09:27 | NUR ---
PT TO OR VIA BED
[2025-04-02] MEDS ORDERED: Bupivacaine 0.5% HCl 5 MG/ML 30MLVIAL ONE (09:29)
[2025-04-02] MEDS ORDERED: FentaNYL Citrate 50 MCG/ML 2 ML Injection IV PRN (09:40)
[2025-04-02] MEDS ORDERED: Albuterol 2.5 MG/3 ML VIAL INH PRN (09:40)
[2025-04-02] MEDS ORDERED: Ondansetron HCl 2 MG / ML 2ML Vial IV PRN (09:40)
[2025-04-02] MEDS ORDERED: HYDROmorphone HCl/Pf 1MG SYR IV PRN (09:45)
[2025-04-02] MEDS ORDERED: Rocuronium Bromide 10 MG/ML 5ML Injection IV ONE (09:58)
[2025-04-02] MEDS ORDERED: Ondansetron HCl 2 MG / ML 2ML Vial ONE (09:58)
[2025-04-02] MEDS ORDERED: Dexamethasone Sod Phos 10 MG/ML 1ML VIAL ONE (09:58)
[2025-04-02] MEDS ORDERED: Ketorolac Tromethamine 30mg Vial ONE (09:58)
[2025-04-02] MEDS ORDERED: FentaNYL Citrate 50 MCG/ML 2 ML Injection ONE (09:58)
[2025-04-02] MEDS ORDERED: Phenylephrine HCl 100 MCG/ML-NS 10MLSYR (1MG/10ML) ONE (10:10)
[2025-04-02] MEDS ORDERED: Sugammadex Sodium 200 MG/2ML SDV (100 MG/ML) ONE (11:30)
[2025-04-02] MEDS ORDERED: HYDROmorphone HCl/Pf 1MG SYR ONE (11:40)
--- NOTE | 2025-04-02 12:33 | NUR ---
PT TO ROOM 213 FROM PACU. 3 LAP SITES/ONE [place] SITE RLQ NOTED. [place] WITH SEROSANGUINOUS DRAINAGE. PT DENIES PAIN. POST OP VS STARTED AND STABLE. 3LNC CONTINUED. PT AROUSABLE TO VOICE, BUT SLEEPY. WILL CONTINUE TO MONITOR.
--- NOTE | 2025-04-02 17:48 | NUR ---
SHIFT SUMMARY PT UP TO VOID 300CC MICHAEL URINE. STARTED ON OXYCODONE POSTOP FOR PAIN. LAP RAJENDRA WITH [place] DRAIN PLACEMENT TODAY. POST OP VS STABLE. WILL CONTINUE TO MONITOR.
[2025-04-03 04:36] VITALS: BP 113/65
[2025-04-03 04:38] LABS: BASOPHILS ABSOLUTE AUTO 0.02 K/mm3 (0.00-0.23); BASOPHILS PERCENT AUTO 0 % (0-2); EOSINOPHILS ABSOLUTE AUTO 0.01 K/mm3 (0.00-0.68); EOSINOPHILS PERCENT AUTO 0 % (0-6); Hematocrit 35.8 % (33.0-51.0); Hemoglobin 12.2 g/dL (11.5-16.0); IMMATURE GRAN ABSOLUTE AUTO 0.68 K/mm3 (0.00-0.10); IMMATURE GRAN PERCENT AUTO 5 % (0-1); LYMPHOCYTES ABSOLUTE AUTO 1.18 K/mm3 (0.84-5.20); LYMPHOCYTES PERCENT AUTO 8 % (21-46); MONOCYTES ABSOLUTE AUTO 2.96 K/mm3 (0.16-1.47); MONOCYTES PERCENT AUTO 20 % (4-13); Mean Corpuscular HGB Conc 34.1 g/dL (31.5-36.5); Mean Corpuscular Volume 100 fL (80-100); NEUTROPHILS ABSOLUTE AUTO 9.98 K/mm3 (1.96-9.15); NEUTROPHILS PERCENT AUTO 67 % (41-73); NRBC ABSOLUTE 0.00 K/mm3 (0.00-0.02); NRBC Auto 0.0 /100 WBC (0.0-0.2); Platelet Count 117 K/mm3 (150-400); RDW Coefficient Variation 13.4 % (11.7-14.2); RDW Standard Deviation 49.6 fL (35.1-46.3)
[2025-04-03 05:13] LABS: Alanine Aminotransfer (ALT/SGP 230.0 U/L (12-78); Albumin, Blood 2.5 g/dL (3.4-5.0); Albumin/Globulin Ratio 0.7 (0.8-1.8); Anion Gap 8.0 mmol/L (3-11); Aspartate Aminotrans (AST/SGOT 107.0 U/L (12-37); Bilirubin, Total 1.0 mg/dL (0.1-1.0); Blood Urea Nitrogen 17.0 mg/dL (8-24); CO2, Blood 24.0 mmol/L (21-32); Calcium, Blood 8.0 mg/dL (8.5-10.1); Chloride, Blood 106.0 mmol/L (98-108); Creatinine, Blood 0.68 mg/dL (0.40-1.00); Globulin, Blood 3.4 g/dL (2.2-4.0); Glucose, Blood 95.0 mg/dL (70-99); Potassium, Blood 4.0 mmol/L (3.5-5.5); Sodium, Blood 134.0 mmol/L (136-145); Total Protein, Blood 5.9 g/dL (6.4-8.2)
--- NOTE | 2025-04-03 06:26 | NUR ---
SHIFT SUMMARY NO ACUTE EVENTS OVERNIGHT. PT AMBULATING TO RESTROOM WITH SBA USING FWW. PT LAP SITES CDI; PT [place] DRAING TO RLQ DRAINING SS OUTPUT; DRESSED WITH WINDOW DRESSING AND GAUZE. PT DECLINED PAIN MEDICATION DURING SHIFT WITH NO C/O NAUSEA OR PAIN AT THE TIME OF THIS NOTE. PT REMAINED ON ROOM AIR.
[2025-04-03 07:04] VITALS: BP 116/67
[2025-04-03 14:41] VITALS: BP 119/66
--- NOTE | 2025-04-03 17:44 | NUR ---
SHIFT SUMMARY PT PRESENTLY EATING MEAL TRAY. AMBULATORY TO BR WITH ONE ASSIST/FWW/GAIT BELT. CURRENTLY DENIES COMPLAINTS. WILL CONTINUE TO MONITOR.
[2025-04-03 19:56] VITALS: BP 126/78
--- NOTE | 2025-04-04 03:30 | NUR ---
INCENTIVE SPIROMETER GIVEN TO PT AFTER DIRECTOR OF THERAPY SERVICES ASSISTED PT TO BSC. INSTRUCTIONS GIVEN FOR USE AND PT COMPLETED RETURN DEMONSTRATION.
[2025-04-04 03:39] VITALS: BP 138/72
[2025-04-04 05:25] LABS: BASOPHILS ABSOLUTE AUTO 0.02 K/mm3 (0.00-0.23); BASOPHILS PERCENT AUTO 0 % (0-2); EOSINOPHILS ABSOLUTE AUTO 0.03 K/mm3 (0.00-0.68); EOSINOPHILS PERCENT AUTO 0 % (0-6); Hematocrit 34.2 % (33.0-51.0); Hemoglobin 11.6 g/dL (11.5-16.0); IMMATURE GRAN ABSOLUTE AUTO 0.15 K/mm3 (0.00-0.10); IMMATURE GRAN PERCENT AUTO 2 % (0-1); LYMPHOCYTES ABSOLUTE AUTO 1.23 K/mm3 (0.84-5.20); LYMPHOCYTES PERCENT AUTO 14 % (21-46); MONOCYTES ABSOLUTE AUTO 1.51 K/mm3 (0.16-1.47); MONOCYTES PERCENT AUTO 17 % (4-13); Mean Corpuscular HGB Conc 33.9 g/dL (31.5-36.5); Mean Corpuscular Volume 101 fL (80-100); NEUTROPHILS ABSOLUTE AUTO 5.72 K/mm3 (1.96-9.15); NEUTROPHILS PERCENT AUTO 66 % (41-73); NRBC ABSOLUTE 0.00 K/mm3 (0.00-0.02); NRBC Auto 0.0 /100 WBC (0.0-0.2); Platelet Count 127 K/mm3 (150-400); RDW Coefficient Variation 13.2 % (11.7-14.2); RDW Standard Deviation 49.1 fL (35.1-46.3)
[2025-04-04 05:50] LABS: Alanine Aminotransfer (ALT/SGP 146.0 U/L (12-78); Albumin, Blood 2.3 g/dL (3.4-5.0); Albumin/Globulin Ratio 0.7 (0.8-1.8); Anion Gap 8.0 mmol/L (3-11); Aspartate Aminotrans (AST/SGOT 48.0 U/L (12-37); Bilirubin, Total 1.0 mg/dL (0.1-1.0); Blood Urea Nitrogen 10.0 mg/dL (8-24); CO2, Blood 25.0 mmol/L (21-32); Calcium, Blood 8.2 mg/dL (8.5-10.1); Chloride, Blood 106.0 mmol/L (98-108); Creatinine, Blood 0.66 mg/dL (0.40-1.00); Globulin, Blood 3.5 g/dL (2.2-4.0); Glucose, Blood 88.0 mg/dL (70-99); Potassium, Blood 3.6 mmol/L (3.5-5.5); Sodium, Blood 135.0 mmol/L (136-145); Total Protein, Blood 5.8 g/dL (6.4-8.2)
--- NOTE | 2025-04-04 06:54 | NUR ---
SHIFT SUMMARY NO ACUTE EVENTS OVERNIGHT. PT IV REPLACED X2. PT REMAINS ON 1L O2 VIA NC DURING NOC SHIFT PER REPORT PT SPO2 DECREASES DURING SLEEP. PT [place] SITE LEAKED AT BEGINNING OF SHIFT AND TELECOMMUNICATIONS TECHNICIAN CHANGED DRESSING.
[2025-04-04 07:18] VITALS: BP 122/70
[2025-04-04 14:32] VITALS: BP 123/72
--- NOTE | 2025-04-04 17:06 | NUR ---
SUMMARY AXO4. VSS. DR VANEGAS REMOVED [place] DRAIN, DRESSING CDI. 3 LAP SITES CDI. PT HAS AMBULATED MULTIPLE TIMES TO BATHROOM - SLOWED DUE TO BASELINE KNEE PAIN/FUNCTION BUT TOELRATES THIS WELL. PAIN MEDS X1 ADMINISTRATION THIS SHIFT SO FAR, PT HAS TO BE ASKED OFTEN TO EXPRESS ANY PAIN. FAMILY IN AND OUT OF ROOM THIS SHIFT. PT TOLERATING PO INTAKE WELL. VOIDING WELL. USING CALL LIGHT APPROPRIATELY.
[2025-04-04 19:37] VITALS: BP 135/70
[2025-04-05 05:02] VITALS: BP 129/70
--- NOTE | 2025-04-05 05:09 | NUR ---
SHIFT SUMMARY NO ACUTE EVENTS OVERNIGHT. PT MEDICATED WITH PO MEDS DURING SHIFT. PT AMBULATED TO RESTROOM WITH FWW. PT CONTINUES ON FULL LIQUID DIET WITH NO NAUSEA REPORTED.
[2025-04-05 07:29] VITALS: BP 134/73
[2025-04-05 07:30] VITALS: BP 134/73
[2025-04-05] MEDS ORDERED: AMOX-CLAV 875-1 EAC5 PO (13:47)
[2025-04-05] MEDS ORDERED: TRAM50 PO (13:47)
[2025-04-05] MEDS ORDERED: VISBIOME 112.51 EACH PO (13:48)
[2025-04-05 16:12] VITALS: BP 130/61
--- NOTE | 2025-04-05 16:21 | NUR ---
PT DC'D @3672 ASSUMED CARE OF PT @0700. AXO4. VSS. LAP SITES X3 CDI. [place] DRAI REMOVAL SITE- DRESSINCG CHANGED, AREA CLEANED, NEW DRESSING APPLIED. PT CHANGED TO REULAR DIET - TOLERATED WELL. VOIDING WELL. FLATULENCE POSITIVE. PT REQUIRING LITTLE PAIN MEDICATION BUT MOBIC HOME DOSE RESTARTED FOR KNEE PAIN. DR VANEGAS ASSESSED PT AND OK'D FOR DC. DR MANN FOLLOWED SUIT AND PLACED DC ORDERS. WHILE RECEIVING LAST DOSE OF UNASYN IV - MEDICATION INFILTRATED - PT DENIED PAIN BUT [facility] RECOMM[facility] WAS WARM COMPRESS. THIS WAS IN PLACE WITH BREAKS FOR 2.5 HOURS POST DOSE - FAMILY WAS HESITANT AFTER INITIAL FINDING BUT OK WITH DC ONCE SWELLING BEGAN TO RECEED WITH COMPRESSION - INSTRUCTED TO USE OBI WRAP TO COMPRESS AND ALLOW TIME FOR FLUID TO RETURN INTRAVASCULARLY. WITH DC, SIE REMAINED NONINFLAMED, NONPAINFUL TO TOUCH, AND SWELLING HAD CONTINUED TO RECEED - STILL PRESENT TO SMALL DEGREE. DC INSTRUCTIONS PROVIDED TO PT AND FAMILY. VSS. DRESSING IN PLACE TO [facility] REMOVAL SITE. PT DENYING PAIN. PT GIVEN PHYSIAL PAIN PRESCRIPTION AND INSTRUCTED TO PICK OTHER MEDS UP FROM [facility]. POST EDUCATION, PT AND FAMILY GRABBED ALL BELONGINGS, WHEELED OUT TO CAR, AND DC'D.
== END 2025-04-05 16:18 | disposition home or self-care (01) | DRG 417 ==
LOC: ER 12:16 → ERHOLD 15:53 → SURS 15:53
PROVIDERS: Student in an Organized Health Care Education/Training Program; Surgery; ADMIT Internal Medicine
PROC: BF121ZZ Fluoroscopy of Gallbladder using Low Osmolar Contrast (ICD-10-PCS; 2025-04-02)
PROC: 0FT44ZZ Resection of Gallbladder, Percutaneous Endoscopic Approach (ICD-10-PCS; principal; 2025-04-02 11:45)
DX: K80.00 Calculus of gallbladder with acute cholecystitis without obstruction (principal); K85.10 Biliary acute pancreatitis without necrosis or infection; C34.92 Malignant neoplasm of unspecified part of left bronchus or lung; E87.1 Hypo-osmolality and hyponatremia; D69.6 Thrombocytopenia, unspecified; M54.50 Low back pain, unspecified; M85.80 Other specified disorders of bone density and structure, unspecified site; Z66 Do not resuscitate; K59.09 Other constipation; F41.9 Anxiety disorder, unspecified; F32.A Depression, unspecified; M19.90 Unspecified osteoarthritis, unspecified site; E78.5 Hyperlipidemia, unspecified; E03.9 Hypothyroidism, unspecified; J43.9 Emphysema, unspecified; Z86.73 Personal history of transient ischemic attack (TIA), and cerebral infarction without residual deficits; Z90.710 Acquired absence of both cervix and uterus; Z90.49 Acquired absence of other specified parts of digestive tract; Z98.890 Other specified postprocedural states; Z90.722 Acquired absence of ovaries, bilateral; Z85.118 Personal history of other malignant neoplasm of bronchus and lung; Z88.8 Allergy status to other drugs, medicaments and biological substances; Z79.890 Hormone replacement therapy; Z79.899 Other long term (current) drug therapy
CPT/HCPCS: 36415; 76705; 80053; 83690; 83735; 84484; 85025; 88304; 93005; 93010; 94760; 96365; 96375; 99285-25; A9270; C1729; C1894; J0295; J1100; J1171; J1885; J2371; J2405; J2704; J3010; J7120